=== PATIENT | male | born 1945 | race Two or more races ===

== ENCOUNTER 2016-10-13 06:04 | Day surgery (SDC) | payer MEDICARE, BC ==
[2016-10-12 11:52] VITALS: BMI 32.1
[~2016-10-13 06:04] MED LIST: HEPARIN SODIUM,PORCINE 5,000 UNIT/ML 1 ML VIAL SQ ONE; LACTATED RINGERS 1,000 ML IV SCH; MIDAZOLAM 2 MG/2 ML VIAL IV PRN; ceFAZolin 2 GM in SODIUM CHLORIDE 0.9% 100 ML IVPB ONE; fentaNYL (PF) 50 MCG/ML 2 ML AMP IV PRN
[2016-10-13] MEDS ORDERED: LIDOCAINE 1% 20 ML VIAL (10MG/ML) FOR IV START INTRADERMA ONE ×2 (06:50→06:54)
[2016-10-13] MEDS: ONDANSETRON 4 MG/2 ML VIAL IVP ONE ×2 (06:52→06:55)
[2016-10-13] MEDS: DEXAMETHASONE SOD PHOSPHATE 10 MG/ML 1 ML VIAL IV ONE ×2 (06:54→06:55)
[2016-10-13] MEDS ORDERED: BUPIVACAIN-EPI 0.25%-1:200,000 30 ML VIAL SQ ONE ×2 (07:36→09:38)
[2016-10-13] MEDS ORDERED: VECURONIUM 10 MG VIAL IV ONE (07:50)
[2016-10-13] MEDS ORDERED: SUCCINYLCHOLINE CHLORIDE 100 MG/5 ML SYR IV ONE (07:50)
[2016-10-13] MEDS ORDERED: NEOSTIGMINE 1 MG/ML 10 ML VIAL ONE (07:50)
[2016-10-13] MEDS ORDERED: PROPOFOL 10 MG/ML 20 ML VIAL IV ONE (07:50)
[2016-10-13] MEDS ORDERED: PHENYLEPHRINE-0.9% NACL SYG 1 MG/10 ML SYRINGE ONE (07:50)
[2016-10-13] MEDS ORDERED: GLYCOPYRROLATE 0.2 MG/ML 2 ML VIAL ONE (07:50)
[2016-10-13] MEDS ORDERED: SODIUM CHLORIDE 0.9% 50 ML with ceFAZolin 2,000 MG IV ONE ×2 (07:50)
[2016-10-13] MEDS ORDERED: ePHEDrine 50 MG/ML 1 ML AMP ONE (07:50)
[2016-10-13] MEDS ORDERED: LIDOCAINE 1% INJ 10MG/ML (20 ML MDV) ONE (07:50)
[2016-10-13] MEDS ORDERED: KETOROLAC 30 MG/ML 1 ML VIAL ONE (07:50)
[2016-10-13] MEDS ORDERED: MIDAZOLAM 2 MG/2 ML VIAL ONE (07:50)
[2016-10-13] MEDS ORDERED: fentaNYL (PF) 50 MCG/ML 2 ML AMP ONE (07:50)
[2016-10-13] MEDS ORDERED: LACTATED RINGERS 1,000 ML IV ONE (08:54)
[2016-10-13 10:26] VITALS: TEMP 97
[2016-10-13] MEDS ORDERED: ONDANSETRON 4 MG/2 ML VIAL IVP ONE (10:57)
[2016-10-13] MEDS ORDERED: traMADol 50 MG TAB PO ONE (11:30)
[2016-10-13 12:12] VITALS: RESP 16
[2016-10-13 13:33] VITALS: BP 111/74; PULSE 94
--- NOTE | 2016-10-30 15:30 | P.OP ---
Date of Procedure: 10/13/16 Preoperative Diagnosis: Obesity BMI 32 Gastroesophageal reflux disease Ventral hernia Postoperative Diagnosis: Same Procedure(s) Performed: Robotic-assisted laparoscopic ventral hernia repair with mesh and intraoperative EGD Implants: BARD Ventralex ST Hernia Patch - 6.4 cm circular Anesthesia: ANGI local Surgeon: Aimee Pace Pathology: none sent Condition: stable Disposition: PACU Indications for Procedure: 71 years old male with refractory gastroesophageal reflux disease presents with ventral hernia. Informed consent was obtained and patient elected to undergo robotic-assisted laparoscopic ventral hernia repair with mesh and intraoperative EGD Description of Procedure: The patient was brought to the operating room and placed in supine position. General anesthesia with endotracheal intubation was performed as per anesthesia team. The right arm was tucked against the body and a footboard was applied. Chlorhexidine was used to prep the skin followed by application of sterile drapes and Ioban dressing. A timeout was performed to verify correct patient and correct procedure. Patient was confirmed to receive perioperative IV antibiotics , bilateral SCDs and 5000 units of subcutaneous heparin for VTE prophylaxis. A 5 mm skin incision was made along the left midaxillary line and a Veress needle was inserted to establish the pneumoperitoneum to a pressure of 15 mm of Hg. Using a 5 mm 30 laparoscope the peritoneal cavity was entered using the Optiview technique. Additional 12 mm trocar was placed in the mid axillary line in the left mid abdomen and robotic 8 mm trocar in the left lower abdomen. The 5 mm trocar was upsized to 8 mm robotic trocar. The da Kyle robot was then docked. The 30 robotic camera was used. A robotic prograsp and monopolar scissors were inserted through 8 mm robotic trocars The hernia defect contained preperitoneal fat and omentum which were reduced using gentle traction and countertraction method. The falciform ligament was divided using monopolar scissors close to the anterior abdominal wall to create a landing zone for the mesh. A 6.4 cm circular Ventralex STmesh was tagged in the center using a prolene stitich and was rolled and introduced to the abdominal cavity via the 12 mm trocar. The hernia defect was closed primarily with running sutures using O- V lock by taking 1 cm bite on the fascia on either side of the defect. A Minh Juan device was inserted through the middle of the hernia defect and the stay suture on the mesh was grasped to elevate the mesh against the anterior abdominal wall. The mesh was circumferentially sutured to the peritoneum of the anterior abdominal wall using 2-0 V lock without any folds or kinks. The robot was then undocked. Laparoscopic 30 degrees camera was reinserted. All trocar sites were examined. No evidence of bleeding. The 12 mm trocar site was closed using two transfascial sutures of 0 Vicryl which were placed using a Minh Juan device. The pneumoperitoneum was evacuated and all the skin incisions were closed using 4-0 Monocryl followed by Dermabond skin glue. Telfa and Tegaderm dressings were applied. The sponge, instrument and needle count were correct x2. Abdominal binder was applied. I proceeded with intraop EGD. A well-lubricated Olympus upper endoscope was passed orally. The esophagus was intubated without difficulty. The vocal cords were visualised and protected at all times. The endoscope was passed beyond the pylorus into the first and second portion of the duodenum. No abnormality was noted in the duodenum mucosa. The scope was then retroflexed. Small hiatal was noted which is Hill Grade I. No mass, active ulcer or bleeding stigmata noted within the gastric lumen. The GE junction is measured at 40cm from the incisors . No evidence of reflux esophagitis. The endoscope was gradually withdrawn. No abnormality identified in the esophagus. Patient tolerated the procedure well and was taken to post anesthesia care unit in stable condition.
== END 2016-10-13 14:31 | disposition home or self-care (01) ==
LOC: OR 06:04
PROVIDERS: ATTEND Surgery
DX: K43.9 Ventral hernia without obstruction or gangrene (principal); E66.9 Obesity, unspecified; Z68.32 Body mass index [BMI] 32.0-32.9, adult; K21.9 Gastro-esophageal reflux disease without esophagitis; I10 Essential (primary) hypertension; E78.5 Hyperlipidemia, unspecified; Z79.2 Long term (current) use of antibiotics; Z79.899 Other long term (current) drug therapy; Z88.5 Allergy status to narcotic agent
CPT/HCPCS: 49652; 43235; C1781; J2250; J1644; J1100; J2710; J2405; J2001; J3010; J1885; J0690; J2370; J0330; J2704